=== PATIENT | male | born 1950 | race Caucasian/White ===

== ENCOUNTER 2018-05-08 14:11 | Outpatient (CLI) | payer MEDICARE ==
--- NOTE | 2018-05-08 15:35 | RAD ---
BILATERAL KNEES UPRIGHT AP VIEW ONLY: Date: 05/08/18 HISTORY: 67-year-old male with history of pain, synovial cyst, popliteal space. FINDINGS: Single AP view of the right and left knee is performed. 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 No overt fracture or malalignment. IMPRESSION: Tricompartment degenerative changes with narrowing of the medial compartment and evidence for chondro calcinosis. POS: J[facility]
== END 2018-05-08 14:12 | disposition home or self-care (01) ==
LOC: NAV RAD 14:11
PROVIDERS: ATTEND Family Medicine
DX: M71.20 Synovial cyst of popliteal space [Baker], unspecified knee (principal); M25.569 Pain in unspecified knee; M17.0 Bilateral primary osteoarthritis of knee; M11.262 Other chondrocalcinosis, left knee; M11.261 Other chondrocalcinosis, right knee
CPT/HCPCS: 73565